=== PATIENT | female | born 1995 | race Caucasian/White ===

== ENCOUNTER 2017-01-08 20:41 | Emergency (ER) | payer OTHER ==
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
--- NOTE | 2017-01-08 22:30 | ED ORDER SUMMARY ---
..... Patient: NILESH GONZALES OrderSheet [facility] VisitID: [id number] [address] [place] [address] 21y, F Registration Date/Time: 01/08/2017 ORDER SHEET Weight: 68.0 kg (stated) Allergies: Amoxicillin GENERAL ORDERS: Humerus Left Urgent (21:07 01/08/2017 John Arias) (k 21:13 [facility] Extension Service Specialist In Charge) (21:29 [facility]) MEDICATION ORDERS: IV FLUIDS: ORDER SHEET NOTES: [Electronically signed by Keila Diaz R.N. (04:41 01/09/2017)] [Electronically signed by Iain Holley Dr. (08:30 01/09/2017)] [Electronically locked/signed by Keila Diaz R.N. (04:41 01/09/2017)]
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
--- NOTE | 2017-01-08 22:30 | ED ORDER SUMMARY ---
..... Patient: NILESH GONZALES OrderSheet [facility] VisitID: [id number] [address] [place] [address] 21y, F Registration Date/Time: 01/08/2017 ORDER SHEET Weight: 68.0 kg (stated) Allergies: Amoxicillin GENERAL ORDERS: Humerus Left Urgent (21:07 01/08/2017 John Arias) (k 21:13 [facility] Rotary Machine Operator) (21:29 [facility]) MEDICATION ORDERS: IV FLUIDS: ORDER SHEET NOTES: [Electronically signed by Keila Diaz R.N. (04:41 01/09/2017)] [Electronically signed by Iain Holley Dr. (08:30 01/09/2017)] [Electronically locked/signed by Keila Diaz R.N. (04:41 01/09/2017)]
--- NOTE | 2017-01-08 22:37 | DIAGNOSTIC IMAGING REPORT ---
PROCEDURE: XR HUMERUS - LEFT INDICATION: PAIN TECHNIQUE: AP and lateral views. COMPARISON: None. FINDINGS: Osseous structures are normal. IMPRESSION: 1. Normal left humerus.
--- NOTE | 2017-01-08 22:37 | DIAGNOSTIC IMAGING REPORT ---
PROCEDURE: XR HUMERUS - LEFT INDICATION: PAIN TECHNIQUE: AP and lateral views. COMPARISON: None. FINDINGS: Osseous structures are normal. IMPRESSION: 1. Normal left humerus.
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
--- NOTE | 2017-01-09 08:30 | ED MAR SUMMARY ---
..... Medication Administration Record [facility] [address] [place], [place] [id number] Patient: NILESH GONZALES Visit ID: [id number] 21y, F Weight: 68.0 kg Height/Length: 63 in BMI: 26.6 ALLERGIES: Amoxicillin
--- NOTE | 2017-01-09 08:30 | ED MAR SUMMARY ---
..... Medication Administration Record [facility] [address] [place], [place] [id number] Patient: NILESH GONZALES Visit ID: [id number] 21y, F Weight: 68.0 kg Height/Length: 63 in BMI: 26.6 ALLERGIES: Amoxicillin
--- NOTE | 2017-01-09 08:30 | ED MED RECONCILIATION SUMMARY ---
Patient: NILESH GONZALES Medication Reconciliation Report [facility] VisitID: [id number] [address] [place] [address] 21y, F Registration Date/Time: 01/08/2017 Weight: 68.0 kg Height/Length: 63 in. BMI: 26.6 ALLERGIES: Amoxicillin The patient's Home Medications are listed below: NONE. The source(s) of the original Home Medication information: Not obtained. The following Medications were given to the patient in the Emergency Department: None. The following Medications were prescribed to the patient: Hydrocodone/APAP 5mg / 325mg: take 1 orally every 6 hours as needed for pain. Dispense fifteen (15). No refill. -- Iain Holley Dr. Diclofenac 50 mg tablets: take 1 tablet orally every 8 hours as needed for pain or stiffness. Dispense thirty (30). No refill. -- Iain Holley Dr.
--- NOTE | 2017-01-09 08:30 | ED MED RECONCILIATION SUMMARY ---
Patient: NILESH GONZALES Medication Reconciliation Report [facility] VisitID: [id number] [address] [place] [address] 21y, F Registration Date/Time: 01/08/2017 Weight: 68.0 kg Height/Length: 63 in. BMI: 26.6 ALLERGIES: Amoxicillin The patient's Home Medications are listed below: NONE. The source(s) of the original Home Medication information: Not obtained. The following Medications were given to the patient in the Emergency Department: None. The following Medications were prescribed to the patient: Hydrocodone/APAP 5mg / 325mg: take 1 orally every 6 hours as needed for pain. Dispense fifteen (15). No refill. -- Iain Holley Dr. Diclofenac 50 mg tablets: take 1 tablet orally every 8 hours as needed for pain or stiffness. Dispense thirty (30). No refill. -- Iain Holley Dr.
== END 2017-01-08 22:44 | disposition home or self-care (01) ==
LOC: ED SRH 20:41
DX: S16.1XXA Strain of muscle, fascia and tendon at neck level, initial encounter (principal); S40.022A Contusion of left upper arm, initial encounter; V49.49XA Driver injured in collision with other motor vehicles in traffic accident, initial encounter; Y93.89 Activity, other specified; Y99.9 Unspecified external cause status; Y92.9 Unspecified place or not applicable